=== PATIENT | male | born 1975 | race Caucasian/White ===

== ENCOUNTER 2016-09-27 09:28 | Emergency (ER) | payer OTHER ==
[2016-09-27 09:47] VITALS: BP 126/83; PULSE 64; RESP 16; TEMP 98.2; O2SAT 95
--- NOTE | 2016-09-27 10:10 | DX ---
Left Fifth Finger, Three Views September 27, 2015 at 9:53 a.m. Clinical History: 40-year-old male who sustained an injury of the left fifth finger, dislocating it a nd then auto-reducing it. The injury was sustained while playing basketball. Comparison Study: None. Findings: There is soft tissue swelling associated with the fifth digit and the MCP, PIP, and DIP arvind nts are anatomically aligned. On the lateral view, there is an equivocal avulsion fragment over the d orsal distal aspect of the proximal phalanx. Impression: Mild soft tissue swelling associated with the fifth digit with anatomic alignment of the interphalangeal joints and equivocal avulsive fragment off the dorsal distal aspect of the proximal p halanx.
--- NOTE | 2016-09-27 10:42 | UCPHY ---
H & P Time Seen by Provider: 09/27/16 09:44 Patient Type: New HPI/ROS: 40-year-old male presents complaining of dislocated his little finger while playing basketball, he states there was an ER doctor there who put it back in place however he still has swelling and pain in his little finger. Review of systems General no fever no chills no weakness HEENT no eye pain no eye discharge. 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 Alcohol socially Denies drug use Smoking Status: Never smoked Physical Exam: Alert and oriented in no acute distress nontoxic appearance, afebrile Atraumatic normocephalic Neck no JVD Lungs clear to auscultation, no respiratory distress Heart regular rate and rhythm Extremities no cyanosis clubbing edema Left hand-left little finger, erythema and swelling at the PIP, with decreased range of motion Capillary refill intact, able to flex/extend DIP Constitutional: Initial Vital Signs Temperature (C) 36.8 C 09/27/16 09:44 Heart Rate 64 09/27/16 09:44 Respiratory Rate 16 09/27/16 09:44 Blood Pressure 126/83 H 09/27/16 09:44 O2 Sat (%) 95 09/27/16 09:44 O2 Delivery Mode Room Air Allergies/Adverse Reactions: amoxicillin [Amoxicillin] Allergy (Verified 09/27/16 09:43) Hives Home Medications: Medication Instructions Recorded Finasteride 09/27/16 Medical Decision Making - Diagnostics Imaging: Avulsion fracture at PIP little finger, no current dislocation ED Course/Re-evaluation: Patient seen and evaluated for left little finger pain and swelling after injuring during basketball, likely initial dislocation X-ray shows a small avulsion fracture at the the PIP Impression Fracture dislocation PIP little finger Dislocation resolved prior to arrival Plan Splint in position of function Follow-up with Hand specialist Departure - Departure Disposition: Home, Routine, Self-Care Clinical Impression: Proximal phalanx fracture of finger Condition: Good Instructions: Finger Dislocation (ED), Finger Fracture (ED) Referrals: [place],. [Primary Care Provider] - As per Instructions Joseph Jo MD [Medical Doctor] - As per Instructions - PQRS PQRS Measurement: na
== END 2016-09-27 10:57 | disposition home or self-care (01) ==
LOC: CED 09:28
DX: S62.607A Fracture of unspecified phalanx of left little finger, initial encounter for closed fracture (principal); Y93.67 Activity, basketball
CPT/HCPCS: 73140-PO; G0463-PO

== ENCOUNTER 2016-11-04 11:17 | Day surgery (SDC) | payer OTHER ==
[~2016-11-04 11:17] MED LIST: CLINDAMYCIN 600 MG in D5W 50 ML IV ONE; CLINDAMYCIN 600 MG/DEXTROSE 50 ML IV ONE
[2016-11-04] MEDS ORDERED: LIDOCAINE 1% 5 ML SDV ONE (11:39)
[2016-11-04] MEDS ORDERED: CLINDAMYCIN 600 MG/DEXTROSE/50 ML BAG IV ONE (11:39)
[2016-11-04] MEDS ORDERED: LIDOCAINE 1% 5 ML SDV ID PRN (12:09)
[2016-11-04] MEDS ORDERED: LR 1,000 ML IV ONE (12:09)
[2016-11-04] MEDS ORDERED: LIDOCAINE 1% 30 ML SDV ONE (12:51)
[2016-11-04] MEDS ORDERED: BACITRACIN 50,000 UNITS/10 ML SYR IRR ONE ×2 (12:52→15:21)
[2016-11-04] MEDS ORDERED: ROPIVACAINE HCL 20 MG/10 ML INJ EP ONE (12:52)
[2016-11-04] MEDS ORDERED: BUPIVACAINE 0.5% 30 ML SDV ONE (12:53)
[2016-11-04] MEDS ORDERED: DEXAMETHASONE 4 MG/ML VIAL ONE ×2 (12:53→14:24)
[2016-11-04] MEDS ORDERED: MIDAZOLAM 2 MG/2 ML VIAL ONE (14:00)
[2016-11-04] MEDS ORDERED: LIDOCAINE 2% JELLY 5 ML TUBE ONE (14:02)
[2016-11-04] MEDS ORDERED: PROPOFOL 200 MG/20 ML VIAL ONE ×2 (14:03→14:15)
[2016-11-04] MEDS ORDERED: fentaNYL 100 MCG/2 ML INJ ONE (14:03)
[2016-11-04] MEDS ORDERED: LIDOCAINE 2% 5 ML SDV ONE (14:05)
[2016-11-04] MEDS ORDERED: ONDANSETRON 4 MG/2 ML VIAL ONE (16:32)
[2016-11-04] MEDS ORDERED: PETROLAT,WHT/MIN OIL/SOD CHL 3.5 GM OPHT.OINT ONE (16:52)
[2016-11-04] MEDS ORDERED: KETOROLAC 30 MG/1 ML SDV ONE (17:38)
--- NOTE | 2016-11-04 19:43 | GOP ---
DATE OF OPERATION: 11/04/2016 SURGEON: Maxine San DPM CUT OFF SAW SET UP OPERATOR: Mariza San DPM ANESTHESIA: General. 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 PROCEDURE PERFORMED: FINDINGS: DESCRIPTION OF PROCEDURE: The patient presented to the hospital approximately an hour and half to t wo hours prior to foot surgery after having been n.p.o. past midnight. The patient's preoperative hi story and physical was reviewed and there were no contraindications to the proposed procedures. The patient was given clindamycin 600 mg IV one-half hour prior to foot surgery. The patient was taken to the OR and placed on the OR table in a supine position where the appropriat e anesthetic agents were administered. This was supplemented with local blocks to both feet utilizin g a total of 12 cc of 0.5% Marcaine plain, 8 cc of Naropin 0.2% and 12 cc of 1% Lidocaine plain. An esthetic blocks were given to the posterior tibial nerves as they coursed through the tarsal tunnel and to the proximal aspect 1st metatarsal bases in a Guzman block fashion. The bilateral lower extremi ties were then prepped and draped in the usual aseptic fashion and covered with sterile stockinettes . Sterile pneumatic ankle tourniquets were applied and padded well underneath utilizing elevation o verlying Esmarch bandage. The right foot was first exsanguinated and the tourniquet was inflated to a pressure of 225 mmHg. The foot was lowered to the orthopedic table and sterile draping was compl eted. Attention was then directed to the dorsal medial aspect of the 1st metatarsophalangeal joint where a n approximate 5 cm curvilinear incision was made, initiated at the level of the proximal phalanx ext ending proximally over the distal 1st metatarsal head. The incision was made medial to the extensor hallucis longus tendon. The incision was deepened through the subcutaneous tissues at the level of the capsule tissue taking care to preserve the neurovascular structures. Any bleeders were clamped and cauterized as needed. The subcutaneous tissues were freed from the underlying capsular tissues to the dorsal and medial aspects of the 1st metatarsophalangeal joint and head region. A linear cap sular incision was made and the capsular tissues were reflected off the dorsal medial and medial asp ects of the head of the 1st metatarsal and distal shaft region. The hypertrophic bone to the medial aspect head of the 1st metatarsal was then resected utilizing the sagittal saw in a distal proximal fashion. Attention was directed to the 1st intermetatarsal space where utilizing sharp and blunt dis section, the adductor tendon was identified and released from the base of the proximal phalanx. Att ention was redirected to the medial aspect head of the 1st metatarsal where 0.045 K wire was advance d in a medial to lateral directed through the center aspect of the head of the 1st metatarsal to ser ve as an axis guide. Two osteotomies were then created to the distal 1st metatarsal. The first oste otomy was initiated at the K wire and extended plantarly and proximally so as to exit proximal to th e sesamoid apparatus. A second osteotomy was then created approximately 1 to 2 x the length of the 1st osteotomy and initiate the level of the K wire but extending dorsally and proximally. The K wir e was removed and the 1st metatarsal head was shifted laterally approximately 7 mm and placed flush against the distal end of the 1st metatarsal. The osteotomy was stabilized with a 0.045 K wire. Uti lizing standard technique with the Arthrex screw system. Two K wires to the headless screw system w as placed in dorsal distal to proximal plantar direction crossing the osteotomy site. Then two 2.5 headless screws were placed across the K wires, one measuring 18 mm in length and the other 16 mm in length. The K wires were removed and the osteotomy site was stable and in good alignment. The ost eotomy site was checked with a C-arm, both AP and lateral views. The medial edge of bone was then r esected utilizing the sagittal saw tangential to the shaft and placed on the back table. Any remain ing bony prominences were remodeled to a smooth surface utilizing the powered rasp. Surgical site w as copiously irrigated with sterile saline bacitracin solution. A medial capsulorrhaphy was perform ed and the capsule tissues were reapproximated with 2-0 Vicryl and 3-0 Vicryl. The tourniquet was r eleased and there was immediate capillary refill to all digits and there was hemostasis. The subcut aneous tissues were approximated with 4-0 Vicryl. The skin was reapproximated with 4-0 Prolene marciali zing interrupted horizontal mattress sutures. Range of motion of the hallux was smooth and the lin ux was in the rectus position. Mildly compressive dry sterile gauze dressing was applied utilizing Xeroform, 4 x 4 gauze, Dominique and then Ekn wraps. Attention was then directed to the left foot where a similar procedure was performed as that perform ed on the right foot. Utilizing elevation overlying Esmarch bandage the left foot was exsanguinated and tourniquet was also inflated to a pressure of 225 mmHg. The left foot was lowered to the ortho pedic table and similar procedure was performed on the left foot as I just dictated on the right sukhdeep t. Differences included greater contracture of the extensor hallucis brevis tendon which was releas ed on the left foot. Two 2.5 18 mm headless screws were used on the left foot for fixation. Identi fied to the medial aspect of the 1st metatarsal on the right foot was an area of hemorrhagic tissue to the medial eminence. The bone resected from the medial aspect head of the 1st metatarsal was sen t for pathologic examination. Bone appeared normal on the left foot when the hypertrophy of bone wa s resected. 4-0 Monocryl was utilized for subcutaneous closure on the left foot. A similar shift w as performed on the left foot of the 1st metatarsal head as I dictated on the right foot. No additi onal lateral shift was possible on the right foot despite the larger intermetatarsal angle which was measured. The same sterile bandage was applied to the left foot as I dictated on the right foot. The patient tolerated the procedures and anesthesia well and was transferred to the recovery room wi th vital signs stable and vascular status intact to bilateral lower extremities. In the recovery ro om postoperative and written home care instructions were provided. The patient is instructed on rest , elevation, and use of the cryo cuff and ice bags for the first 3 days. The patient is permitted t o ambulate on both feet with a cast boot on primarily weightbearing on the heel and utilizing crutch es, or a walker for ambulation assist. Orders are written for the patient to receive Toradol 30 mg IV prior to discharge. Postoperative radiographs were ordered in the recovery room. Orders were wri tten for the patient to receive postoperative Darco shoes for both feet for later usage. But the pat ient is instructed to wear the cast boots at all times when ambulating for the first several weeks t o protect the surgical sites. Prescriptions have been given for OxyContin and Percocet to take post operatively as prescribed for pain. The patient is to receive Cryo cuff from the hospital and is in structed on the usage of the cryo cuff. He is to alternate the cryo cuff between the left and the r ight foot approximately every 1 to 2 hours. When the cryo cuff is on the left foot he is to have an ice bag on the dorsal aspect of the right foot. The patient is scheduled for his first postoperati ve visit in 2 days, but is to call the office earlier if any questions or problems should arise. PROCEDURES: Bunionectomy with distal osteotomy 1st metatarsals, bilaterally. /[id number]/MODL
== END 2016-11-04 19:15 | disposition home or self-care (01) ==
LOC: FSGY 11:17
PROVIDERS: ATTEND Podiatrist
DX: M20.11 Hallux valgus (acquired), right foot (principal); M20.12 Hallux valgus (acquired), left foot; M21.611 Bunion of right foot; M21.612 Bunion of left foot; M21.6X1 Other acquired deformities of right foot; M21.6X2 Other acquired deformities of left foot
CPT/HCPCS: 28296; 73630; C1769; C1713; J1100; J1885; J2250; J2405; J2704; J2795; J3010; J3490

== ENCOUNTER 2017-03-12 18:00 | Emergency (ER) | payer OTHER ==
--- NOTE | 2017-03-12 18:08 | EDPHY ---
H & P Time Seen by Provider: 03/12/17 18:04 HPI/ROS: 41-year-old male presents complaining of scattered areas of chest pain lasting anywhere from minutes to up to an hour over the last several days. Nothing seems to make it better nothing seems to make it worse. No current illness, no cough no fevers no chills. patient works out daily primarily cross fit. No leg swelling, no calf pain. No palpitations Patient has noticed when he starts to have this pain and begins to think about it he begins to breathe rapidly, causing tingling in bilateral hands. No history of hypertension, no smoking, no high cholesterol, no diabetes. Review of systems General no fever no chills no weakness HEENT no eye pain no eye discharge. No eye redness, no sore throat Respiratory no cough, no shortness of breath Cardiac Positive chest pain, no peripheral edema GI no abdominal pain, no diarrhea, no constipation, no nausea, no vomiting no flank pain, no hematuria, no dysuria Musculoskeletal no myalgias, no joint pain Heme no easy bruising, no easy bleeding Endo no polyuria, no polydipsia Skin no rashes, no pruritus Neuro no syncope, no dizziness, no headaches Psych is no suicidal ideation, no homicidal ideation Source: Patient Exam Limitations: No limitations - Personal History Current Tetanus/Diphtheria Vaccine: Yes - Medical/Surgical History Hx Asthma: No Hx Chronic Respiratory Disease: No Hx Diabetes: No Hx Cardiac Disease: No Hx Renal Disease: No Hx Cirrhosis: No Hx Alcoholism: No Hx HIV/AIDS: No Hx Splenectomy or Spleen Trauma: No Other PMH: Tonsils - Family History Significant Family History: No pertinent family hx - Social History Smoking Status: Never smoked Alcohol Use: Occasionally Drug Use: None - Physical Exam Exam: 41-year-old male alert and oriented no acute distress nontoxic appearance afebrile HEENT atraumatic normocephalic, extraocular muscles intact, anicteric Oropharynx negative for erythema negative exudate, tolerating her own secretions Neck supple no meningismus Lungs clear to auscultation bilaterally Heart regular rate and rhythm without murmur rub or gallop Abdomen nondistended normoactive bowel sounds soft nontender Back no CVA tenderness, no step-offs, no spinal tenderness Extremities no cyanosis clubbing or edema Neuro alert and oriented, no focal deficits Constitutional: Initial Vital Signs Temperature (C) 36.6 C 03/12/17 18:00 Heart Rate 52 L 03/12/17 18:00 Respiratory Rate 16 03/12/17 18:00 Blood Pressure 144/86 H 03/12/17 18:00 O2 Sat (%) 99 03/12/17 18:00 O2 Delivery Mode Room Air Allergies/Adverse Reactions: amoxicillin [Amoxicillin] Allergy (Verified 03/12/17 18:13) Hives Penicillins Allergy (Verified 03/12/17 18:13) Home Medications: Medication Instructions Recorded Finasteride DAILY06 09/27/16 Medical Decision Making ED Course/Re-evaluation: patient seen and evaluated for chest pain, shortness of of several days duration. EKG -sinus bradycardia, early repolarization labs CBC, sed rate, CMP all within normal limits D-dimer negative troponin negative, 2 hour troponin also negative patient had chest x-ray at outside urgent care read by radiologist as normal physical exam benign impression atypical chest pain plan discharge follow-up PCP - Data Points Laboratory Results: Laboratory Results 03/12/17 18:15 03/12/17 18:15 03/12/17 03/12/17 03/12/17 20:00 18:15 18:15 WBC 6.52 10^3/uL 10^3/uL (3.80-9.50) RBC 4.69 10^6/uL 10^6/uL (4.40-6.38) Hgb 15.0 g/dL g/dL (13.7-17.5) Hct 43.3 % % (40.0-51.0) MCV 92.3 fL fL (81.5-99.8) MCH 32.0 pg pg (27.9-34.1) MCHC 34.6 g/dL g/dL (32.4-36.7) RDW 12.6 % % (11.5-15.2) Plt Count 280 10^3/uL 10^3/uL (150-400) MPV 10.4 fL fL (8.7-11.7) Neut % (Auto) 53.5 % % (39.3-74.2) Lymph % (Auto) 33.6 % % (15.0-45.0) Grady % (Auto) 9.5 % % (4.5-13.0) Eos % (Auto) 2.1 % % (0.6-7.6) Baso % (Auto) 1.1 % % (0.3-1.7) Nucleat RBC Rel Count 0.0 % % (0.0-0.2) Absolute Neuts (auto) 3.49 10^3/uL 10^3/uL (1.70-6.50) Absolute Lymphs (auto) 2.19 10^3/uL 10^3/uL (1.00-3.00) Absolute Monos (auto) 0.62 10^3/uL 10^3/uL (0.30-0.80) Absolute Eos (auto) 0.14 10^3/uL 10^3/uL (0.03-0.40) Absolute Basos (auto) 0.07 10^3/uL 10^3/uL (0.02-0.10) Absolute Nucleated RBC 0.00 10^3/uL 10^3/uL (0-0.01) Immature Gran % 0.2 % % (0.0-1.1) Immature Gran # 0.01 10^3/uL 10^3/uL (0.00-0.10) ESR 3 MM/HR MM/HR (0-15) D-Dimer < 0.27 ug/mLFEU ug/mLFEU (0.00-0.50) Sodium Potassium Chloride Carbon Dioxide Anion Gap BUN Creatinine Estimated GFR Glucose Calcium Total Bilirubin AST ALT Alkaline Phosphatase Troponin I < 0.012 ng/mL ng/mL (0-0.034) Total Protein Albumin Lipase 03/12/17 18:15 WBC RBC Hgb Hct MCV MCH MCHC RDW Plt Count MPV Neut % (Auto) Lymph % (Auto) Grady % (Auto) Eos % (Auto) Baso % (Auto) Nucleat RBC Rel Count Absolute Neuts (auto) Absolute Lymphs (auto) Absolute Monos (auto) Absolute Eos (auto) Absolute Basos (auto) Absolute Nucleated RBC Immature Gran % Immature Gran # ESR D-Dimer Sodium 141 mEq/L mEq/L (134-144) Potassium 4.3 mEq/L mEq/L (3.5-5.2) Chloride 102 mEq/L mEq/L (97-110) Carbon Dioxide 26 mEq/l mEq/l (22-31) Anion Gap 13 mEq/L mEq/L (8-16) BUN 23 mg/dL mg/dL (7-23) Creatinine 1.2 mg/dL mg/dL (0.7-1.3) Estimated GFR > 60 Glucose 91 mg/dL mg/dL (70-100) Calcium 9.4 mg/dL mg/dL (8.5-10.4) Total Bilirubin 0.8 mg/dL mg/dL (0.1-1.4) AST 30 IU/L IU/L (17-59) ALT 34 IU/L IU/L (21-72) Alkaline Phosphatase 103 IU/L IU/L (38-126) Troponin I < 0.012 ng/mL ng/mL (0-0.034) Total Protein 7.5 g/dL g/dL (6.3-8.2) Albumin 4.2 g/dL g/dL (3.5-5.0) Lipase 81.0 IU/L IU/L (23-300) Departure - Departure Disposition: Home, Routine, Self-Care Clinical Impression: Chest pain Condition: Good Instructions: Chest Pain (ED) Referrals: Edward Remy MD [Primary Care Provider] - As per Instructions
--- NOTE | 2017-03-12 18:10 | CPEKG ---
Heart Rate: 50 RR Interval: 1200 P-R Interval: 168 QRSD Interval: 104 QT Interval: 460 QTC Interval: 420 P Mayview: 69 QRS [place]view: 76 T Wave [place]: 52 EKG Severity - ABNORMAL ECG - EKG Impression: SINUS RHYTHM EKG Impression: PROBABLE LEFT VENTRICULAR HYPERTROPHY EKG Impression: ST ELEV, PROBABLE NORMAL EARLY REPOL PATTERN Electronically Signed By: Delmy Covington 12-Mar-2017 21:14:44
[2017-03-12 18:12] VITALS: TEMP 97.9
[2017-03-12 18:23] LABS: % IMMATURE GRANULYOCYTES 0.2 % (0.0-1.1); ABSOLUTE IMMATURE GRANULOCYTES 0.01 10^3/uL (0.00-0.10); ADD DIFF? NO; ADD MORPH? NO; ADD SCAN? NO; ATYPICAL LYMPHOCYTE FLAG 10 (0-99); FRAGMENT RBC FLAG 0 (0-99); HEMATOCRIT 43.3 % (40.0-51.0); LEFT SHIFT FLG 0 (0-99); LIPEMIA HEMOLYSIS FLAG 90 (0-99); MEAN CELL HEMOGLOBIN CONCENTR. 34.6 g/dL (32.4-36.7); MEAN CELL VOLUME 92.3 fL (81.5-99.8); MEAN PLATELET VOLUME 10.4 fL (8.7-11.7); PLATELET CLUMPS FLAG 0 (0-99); PLATELET COUNT 280 10^3/uL (150-400); RED BLOOD CELL COUNT 4.69 10^6/uL (4.40-6.38); RED CELL DISTRIBUTION WIDTH 12.6 % (11.5-15.2)
[2017-03-12 18:31] LABS: SEDIMENTATION RATE 3 MM/HR (0-15)
[2017-03-12 18:36] LABS: ALANINE AMINOTRANSFERASE 34 IU/L (21-72); ALBUMIN 4.2 g/dL (3.5-5.0); ALKALINE PHOSPHATASE 103 IU/L (38-126); ANION GAP 13 mEq/L (8-16); ASPARTATE AMINOTRANSFERASE 30 IU/L (17-59); BILIRUBIN,TOTAL 0.8 mg/dL (0.1-1.4); CALCIUM 9.4 mg/dL (8.5-10.4); CARBON DIOXIDE 26 mEq/l (22-31); CHLORIDE 102 mEq/L (97-110); CREATININE 1.2 mg/dL (0.7-1.3); GLOMERULAR FILTRATION RATE > 60; GLUCOSE 91 mg/dL (70-100); POTASSIUM 4.3 mEq/L (3.5-5.2); SODIUM 141 mEq/L (134-144); TOTAL PROTEIN 7.5 g/dL (6.3-8.2)
[2017-03-12 18:47] LABS: TROPONIN I < 0.012 ng/mL (0-0.034)
[2017-03-12 19:21] VITALS: RESP 14
[2017-03-12 21:15] VITALS: BP 123/79; PULSE 49; O2SAT 96
== END 2017-03-12 20:50 | disposition home or self-care (01) ==
LOC: CED 18:00
DX: R07.9 Chest pain, unspecified (principal)
CPT/HCPCS: 80053-PO; 83690-PO; 84484-PO; 85025-PO; 85378-PO; 85652-PO

== ENCOUNTER 2018-01-11 11:45 | Day surgery (SDC) | payer OTHER ==
[2018-01-11] MEDS ORDERED: LR 1,000 ML IV ONE (12:12)
[2018-01-11] MEDS ORDERED: CLINDAMYCIN 900 MG/DEXTROSE 50 ML IV ONE (12:14)
[2018-01-11] MEDS ORDERED: LIDOCAINE 1% 300 MG/30 ML SDV ONE (12:48)
[2018-01-11] MEDS ORDERED: BUPIVACAINE 0.5% 30 ML SDV ONE (12:48)
[2018-01-11] MEDS ORDERED: ROPIVACAINE HCL 20 MG/10 ML INJ EP ONE (12:48)
[2018-01-11] MEDS ORDERED: DEXAMETHASONE 4 MG/ML VIAL ONE (12:49)
[2018-01-11] MEDS ORDERED: BACITRACIN 50,000 UNITS/10 ML SYR IRR ONE (12:50)
[2018-01-11] MEDS ORDERED: MIDAZOLAM 2 MG/2 ML VIAL IVP ONE (12:57)
[2018-01-11] MEDS ORDERED: fentaNYL 100 MCG/2 ML INJ IVP PRN (12:57)
[2018-01-11] MEDS ORDERED: NALOXONE HCL 0.4 MG/ML INJ IVP PRN (12:57)
[2018-01-11] MEDS ORDERED: ONDANSETRON 4 MG/2 ML VIAL IVP PRN ×2 (12:57→15:15)
[2018-01-11] MEDS ORDERED: DEXAMETHASONE 4 MG/ML VIAL IVP PRN (12:57)
[2018-01-11] MEDS ORDERED: HYDROCODONE/APAP 5/325 TAB PO PRN (12:57)
[2018-01-11] MEDS ORDERED: HYDROmorphONE/DILAUDID 2 MG/ML INJ IVP PRN (12:57)
[2018-01-11] MEDS ORDERED: oxyCODONE IR 5 MG TAB PO PRN (12:57)
--- NOTE | 2018-01-11 12:57 | PDANEPAE ---
ANE History of Present Illness Right Foot ANE Past Medical History - Cardiovascular History Hx Hypertension: No Hx Arrhythmias: No Hx Chest Pain: No Hx Coronary Artery / Peripheral Vascular Disease: No Hx CHF / Valvular Disease: No Hx Palpitations: No - Pulmonary History Hx COPD: No Hx Asthma/Reactive Airway Disease: No Hx Recent Upper Respiratory Infection: No Hx Oxygen in Use at Home: No Hx Sleep Apnea: No Sleep Apnea Screening Result - Last Documented: Negative - Neurologic History Hx Cerebrovascular Accident: No Hx Seizures: No Hx Dementia: No Neurologic History Comment: BRAIN INJURY SKULL FX 2002. AFFECTED SMELL - Endocrine History Hx Diabetes: No - Renal History Hx Renal Disorders: No - Liver History Hx Hepatic Disorders: No - Neurological & Psychiatric Hx Hx Neurological and Psychiatric Disorders: No - Cancer History Hx Cancer: No - Congenital Disorder History Hx Congenital Disorders: No - GI History Hx Gastrointestinal Disorders: No - Other Health History Other Health History: none - Chronic Pain History Chronic Pain: No - Surgical History Prior Surgeries: right bunionectomy 2017 ANE Review of Systems Review of systems is: negative Review of Systems: - Exercise capacity METS (RN): 6 METS ANE Patient History - Allergies Allergies/Adverse Reactions: amoxicillin [Amoxicillin] Allergy (Verified 01/06/18 10:25) Hives Penicillins Allergy (Verified 01/06/18 10:25) Rash - Home Medications Home Medications: Finasteride 09/27/16 [Last Taken 1 Day Ago ~01/10/18] - NPO status NPO Since - Liquids (Date): 01/11/18 NPO Since - Liquids (Time): 08:30 NPO Since - Solids (Date): 01/10/18 NPO Since - Solids (Time): 20:00 - Smoking Hx Smoking Status: Never smoked - Family Anes Hx Family Hx Anesthesia Complications: none ANE Labs/Vital Signs - Vital Signs Blood Pressure: 117/72 Heart Rate: 45 Respiratory Rate: 16 O2 Sat (%): 98 Height: 180.34 cm Weight: 72.575 kg ANE Physical Exam - Airway Neck exam: FROM Mallampati Score: Class 2 - Pulmonary Pulmonary: no respiratory distress - Cardiovascular Cardiovascular: regular rate and rhythym - ASA Status ASA Status: II ANE Anesthesia Plan Anesthesia Plan: GA with mask
--- NOTE | 2018-01-11 13:03 | PDHPUP ---
History & Physical Update H&P update statement: This history and physical update is based on an assessment of the patient which was completed after admission or registration (within 24 hours), but prior to the surgery/procedure. no changes H&P update: H&P reviewed & patient examined (no changes), no change in patient' s condition since H&P completed H&P changes: no changes
[2018-01-11] MEDS ORDERED: PROPOFOL/EMULSION 500 MG/50 ML BOTTLE IV ONE ×3 (13:06→14:23)
[2018-01-11] MEDS ORDERED: fentaNYL 100 MCG/2 ML INJ ONE (13:12)
[2018-01-11] MEDS ORDERED: ROPIVACAINE HCL 150 MG/30 ML INJ ONE (13:13)
[2018-01-11] MEDS ORDERED: ONDANSETRON 4 MG/2 ML VIAL ONE (14:58)
--- NOTE | 2018-01-11 15:07 | POSTANESTH ---
Post Anesthetic Evaluation Cardiovascular Status: Normal, Stable Respiratory Status: Normal, Stable Level of Consciousness/Mental Status: Mildly Sleepy, Arousable Pain Control: Adequate, Prn Tx Ordered Nausea/Vomiting Control: Adequate, Prn Tx Ordered Complications Possibly Related to Anesthesia: None Noted
[2018-01-11] MEDS ORDERED: ONDANSETRON DISINTEGRATING 4 MG TAB PO PRN (15:15)
[2018-01-11] MEDS ORDERED: OXYCODONE/APAP 5/325 TAB PO PRN (15:15)
--- NOTE | 2018-01-11 15:24 | POSTOPPROG ---
Post Op Note Date of Operation: 01/11/18 Surgeon: Maxine San Limousine Driver: none Anesthesiologist: Andrew Ramirez MD Pre-op Diagnosis: painful hardware first MT, exostosis, hammertoe 5th, right Post-op Diagnosis: same Indication: pain Procedure: Removal of painful hardware first MT, HT reduction 5th, exostectomy, right Inf/Abcess present in the surg proc area at time of surgery?: No Complications: none. However, hardware removal was difficult since the screws were stripped and there was bone overgrowth to the distal ends of the screws. His bone was dense.
--- NOTE | 2018-01-11 17:17 | GOP ---
[f rep st] OPERATIVE REPORT DATE OF OPERATION: SURGEON: Maxine San DPM ANESTHESIA: IV sedation with local. ANESTHESIOLOGIST: Isaiah Ramirez DO PREOPERATIVE DIAGNOSIS: Painful internal fixation, 1st metatarsal; exostosis, 1st metatarsal head; p ainful 5th hammertoe deformity; all right foot. POSTOPERATIVE DIAGNOSIS: Painful internal fixation, 1st metatarsal; exostosis, 1st metatarsal head; painful 5th hammertoe deformity; all right foot. PROCEDURE PERFORMED: Removal of the 2 internal screws, distal 1st metatarsal; exostectomy, dorsal 1s t metatarsal head; hammertoe reduction, 5th digit; all right foot. FINDINGS: INDICATIONS: The patient presented to the hospital approximately an hour and a half prior to foot carson rgery after having been n.p.o. past midnight. The patient's preoperative history and physical was re viewed and there were no contraindications to the proposed procedures. The patient was given clindam ycin 900 mg IV 1/2 hour prior to foot surgery. DESCRIPTION OF PROCEDURE: The patient was taken to the OR and placed on the OR table in a supine pos ition where appropriate anesthetic agents were administered. This was supplemented with a local bloc k to the right foot utilizing a total of 15 cc of a 1:1 mixture of 1% lidocaine with Naropin 0.5%. T he anesthetic block was given to the base of the 1st metatarsal and to the 5th metatarsal shaft regio n. Right lower extremity was then prepped and draped in usual aseptic fashion, covered with sterile stockinette. A sterile pneumatic ankle tourniquet was applied, padded underneath well with Webril. Utilizing elevation overlying Esmarch bandage, the foot was exsanguinated and the tourniquet was infl ated to a pressure of 230 mmHg. The foot was then lowered to the orthopedic table. Attention was then directed to the dorsal aspect of the 1st metatarsal distal head region, where an a pproximate 3-4 cm linear longitudinal incision was made, in the same plane as the previous skin incis ion. The incision was deepened through the subcutaneous tissues to the level of the periosteum capsu lar tissues, taking care to preserve the neurovascular structures. Any bleeders were clamped and cau terized as needed. A linear periosteal incision and capsule incision was made, in the same plane as skin incision and the periosteum and capsular tissues were freed from the dorsal aspects of the 1st m etatarsal head and distal shaft region in the region of the screw heads, which were identified. Ther e was exuberant overgrowth of bone surrounding the screw heads. The hypertrophic bone was resected u tilizing a [place] elevator, a 64 blade, and additional instrumentation. Attempt was made to remove th e screws with the Arthrex screwdrivers, which was to no avail. The screws were stripped. The Ike screw removal system was then utilized and the most medial screw was removed successfully. Gilles n was then directed to the more lateral screw, and similar procedure was performed. However, the Tori kla system was not completely successful and only the dorsal quarter of the screw was removed, where it had worn down, utilizing instrumentation. Several other sets of screw removal kits were open and success was found with the Synthes screw removal instrumentation set, and the remaining screw was exc ised in full and placed on the back table. The surgical site was copiously irrigated with a sterile saline bacitracin solution. Prior to removal of the screws, the hypertrophic lipping of bone dorsal to the 1st metatarsal head was resected with a sagittal saw and placed on the back table. The surgic al site was copiously irrigated with sterile saline bacitracin solution. The bony defects were then packed with Arthrex DBM. The capsular tissues were reapproximated utilizing 2-0 Vicryl. Attention was then directed to the 5th digit, where an approximate 2 to 2.5 cm linear longitudinal in cision was made centered over the proximal interphalangeal joint. The incision was deepened through the subcutaneous tissues to the level of the extensor tendon, taking care to preserve the neurovascul ar structures. Any bleeders were clamped and cauterized as needed. The extensor tendon was then inc ised transversely overlying the proximal interphalangeal joint, and the capsular tissues were reflect ed off the head of the proximal phalanx. Utilizing the sagittal saw, the head of the proximal phalan x was then excised and placed on the back table. The surgical site was copiously irrigated with ster ile saline bacitracin solution. The extensor tendon was then reapproximated with 2-0 Vicryl. The to urniquet was released. There was immediate capillary refill to all digits and there was hemostasis. The skin to the 5th digit was reapproximated with 4-0 Prolene. Attention was redirected to the 1st metatarsal incision site, where the subcutaneous tissues reapprox imated with a single 4-0 Vicryl. The skin was reapproximated with 4-0 Prolene utilizing interrupted horizontal mattress sutures. A mildly compressive dry sterile gauze dressing was applied utilizing X eroform, 4 x 4 gauze, Dominique, and Coban. The patient tolerated the procedures and anesthesia well, and was transferred to the recovery room wi th vital signs stable and vascular status intact to the right lower extremity. In the recovery room, the patient received postoperative oral and written home care instructions, which had already been r eviewed with him at his preoperative visit. The patient was dispensed a Darco shoe, instructed to we ar the shoe at all times when weightbearing. The patient was also dispensed a Cryo Cuff and instruct ed on its usage. The patient is scheduled for his 1st postoperative visit in 3 days, but is to call the office earlier if any questions or problems arise. His prescription had been given for Percocet to take postoperatively as prescribed for pain. /[id number]/MODL
[2018-01-11 17:29] VITALS: BP 100/72
== END 2018-01-11 17:27 | disposition home or self-care (01) ==
LOC: FSGY 11:45
PROVIDERS: ATTEND Podiatrist
PROC: 0QPN04Z Removal of Internal Fixation Device from Right Metatarsal, Open Approach (ICD-10-PCS; principal; 2018-01-11 13:00)
PROC: 0QBN0ZZ Excision of Right Metatarsal, Open Approach (ICD-10-PCS; principal; 2018-01-11 13:00)
PROC: 0QBQ0ZZ Excision of Right Toe Phalanx, Open Approach (ICD-10-PCS; principal; 2018-01-11 13:00)
DX: T84.84XA Pain due to internal orthopedic prosthetic devices, implants and grafts, initial encounter (principal); M20.41 Other hammer toe(s) (acquired), right foot; M20.21 Hallux rigidus, right foot; M77.9 Enthesopathy, unspecified; M25.774 Osteophyte, right foot; Z88.0 Allergy status to penicillin
CPT/HCPCS: 20680; 28285; 28288; C1769; C1762; J1100; J2250; J2405; J2704; J2795; J3010